=== PATIENT | male | born 1995 | race African-American/Black ===

== ENCOUNTER 2017-04-30 11:03 | Emergency (ER) | payer BC ==
[~2017-04-30] VITALS: Ht 165.1 cm; Wt 68.0 kg
[2017-04-30 11:06] VITALS: Ht 165.1 cm; Wt 68.0 kg
[2017-04-30] MEDS ORDERED: DIPHTHERIA/TETANUS/PERTUSSIS 0.5 ML SYR/VIAL IM. ONE (11:30)
[2017-04-30] MEDS ORDERED: XYLOCAINE 1%/SOD BICARB 20 ML VIAL INFIL ONE ×2 (11:40→11:45)
--- NOTE | 2017-04-30 11:43 | DIAGNOSTIC IMAGING REPORT ---
RIGHT ANKLE 3 VIEWS HISTORY: Right ankle pain; eval for FB Right COMPARISON: None. FINDINGS: There is no fracture or dislocation. Soft tissue swelling anteriorly within the ankle. There is also 9 mm radiopaque foreign body anterior to the ankle joint. IMPRESSION: A 9 mm metallic foreign body within the soft tissues anterior to the ankle joint. Electronically signed by: Shay Lemus M.D. 04/30/2017 11:42 AM Dictated Date/Time: 04/30/2017 11:41 AM
[2017-04-30] MEDS ORDERED: DOXY-300 PO (12:11)
[2017-04-30] MEDS ORDERED: AMOX875T PO (12:29)
[2017-04-30] MEDS ORDERED: HYDR-5688 PO (12:29)
[2017-04-30] MEDS ORDERED: CEFTRIAXONE SOD 350MG/ML 1 GM VIAL IM ONE (12:30)
[2017-04-30 13:04] VITALS: BP 126/75; PULSE 70; TEMP 36.8; O2SAT 97
--- NOTE | 2017-04-30 22:37 | EMERGENCY ROOM VISIT NOTE ---
ED Visit Note First contact with patient: 11:08 Chief Complaint: Right ankle pain and swelling. History of Present Illness: Mr. Meadows is a 21-year-old black male who ambulates into the ED accompanied by his parents complaining of anterior right ankle pain. Patient reports he was chopping wood last night with a metal splinter and a piece of the splitter came off and went into the anterior right ankle. Associated with this he sustained a laceration. He reports since this occurred he has cleansed the wound and he had some mild discomfort last night. After waking this morning he re-noted increasing swelling in the area of his injury and worsening pain. Currently he describes the pain as an achy and sharp sensation. He rates his discomfort 8/10. His pain is nonradiating. His pain worsens with palpation of the anterior aspect of the ankle and ambulation. He has not identified any alleviating factors related to the pain. He has not taken any medications for pain prior to arrival at the hospital. He denies any associated symptoms including fevers, chills, sweats, skin eruptions, skin color changes, hip pain, knee pain, foot pain, foot weakness/numbness/tingling. Review of Systems: As noted above in history of present illness. 5 body systems were reviewed and found to be negative as noted above. Past Medical History: Lyme's disease, status post tonsillectomy. Current Medications: Doxycycline. Allergies to Medications: Patient denies. Social History: Patient is currently employed; he feels safe in his home environment; he admits to tobacco and alcohol use. Tetanus Immunization Status: Patient reports out of date. Physical Examination: Vital Signs: Date Time Temp Pulse Resp B/P (MAP) Pulse Ox O2 Delivery O2 Flow Rate FiO2 04/30/17 13:04 36.8 70 18 126/75 97 04/30/17 11:06 36.8 67 18 129/68 100 Room Air GENERAL: 21-year-old male in mild distress due to pain, nontoxic-appearing, afebrile and hemodynamically stable. NEUROLOGICAL: Awake, alert and oriented to person, place and time. Answering questions appropriately and following commands. SKIN: Warm, dry and pink. Right Ankle: Over the anterior aspect of the ankle over the talar dome patient has a subcentimeter laceration with mild swelling but no erythema. No drainage from the wound. RIGHT ANKLE: No gross bony deformity. Soft tissue is noted above. Full range of motion in plantar flexion, dorsiflexion, inversion and eversion of the ankle against resistance. No ligamentous laxity. Throughout the foot the skin was warm and pink and capillary refill is brisk. He was able to distinguish light sensations through all dermatomes. ED Course: Patient is assessed as noted above. Patient's medication list was reviewed. Right Ankle X-Rays: Was read by myself and the radiologist and shows swelling and a 9 mm metallic foreign body within the soft tissues of the anterior ankle joint. Foreign Body Removal: Verbal consent was obtained after the risks and benefits were explained. The skin was prepped with betadine and a sterile field set. Wound edges of the wound was anesthetized with 4.5 ml buffered 1% lidocaine. The wound was explored for foreign bodies for approximately 20 minutes and none found palpable. Patient's laceration was extended laterally and the wound was reassessed lower but no foreign bodies were palpable or observed. Copious irrigation was performed using sterile saline. With direct pressure the bleeding subsided. Antibacterial ointment and a sterile dressing applied. No complications and the patient tolerated the procedure well. Patient's case was reviewed with Dr. Dominguez; we agreed on diagnostic approach, treatment, disposition and plan. Patient's case was consulted with Dr. Tylor Guerra, [facility]; he recommended antibiotic therapy and office follow-up for foreign body removal. Patient was given an IM injection of 250 mg of Rocephin. Patient was placed on nonweightbearing crutches. Patient and parents were educated about tonight's findings and instructed on his treatment plan; he verbalizes understanding and agreement with this plan. Clinical Impression: Laceration of the right ankle with foreign body. Disposition: Patient discharged home in stable condition accompanied by his parents; prior to departure he was reassessed and subjectively reported he was feeling slightly better and rated his discomfort 6/10. Plan: Comfort measures, wound care and signs of infection were discussed with the patient and his parents. Patient was placed on a sliding pain scale clouding narcotics; appropriate precautions were discussed with the patient and his name was checked and state database and no red flags were noted. Patient was encouraged use nonweightbearing crutches until followed up with event marketing specialist. Patient was encouraged to call Dr. Guerra's office for follow-up care and treatment. Patient was encouraged return to the ED for worsening/uncontrolled pain, any signs of infection, any foot weakness/numbness/tingling or any new/concerning symptoms.
== END 2017-04-30 12:55 | disposition home or self-care (01) ==
LOC: C.EDB 11:05 → C.EDD 12:55
DX: S91.021A Laceration with foreign body, right ankle, initial encounter (principal); W31.89XA Contact with other specified machinery, initial encounter; Y93.89 Activity, other specified; Z72.0 Tobacco use; Z23 Encounter for immunization